=== PATIENT | female | born 1995 ===

== ENCOUNTER 2017-10-15 23:43 | Emergency (ER) | payer OTHER ==
[~2017-10-15] VITALS: Ht 165.1 cm; Wt 64.5 kg
[2017-10-15 23:46] VITALS: TEMP 36.5; Ht 165.1 cm; Wt 64.5 kg
[2017-10-16] MEDS ORDERED: TRAMADOL/ACETAMINOPHEN 37.5/325MG TAB PO ONE
--- NOTE | 2017-10-16 01:13 | EMERGENCY ROOM VISIT NOTE ---
History Report prepared by Javier: Megan Merritt Under the Supervision of: Dr. Valdemar Lambert D.O. First contact with patient: 23:51 Chief Complaint: RIB PAIN Stated Complaint: SHOOTING PAIN IN RIB CAGE,CANNOT BREATHE History of Present Illness The patient is a 22 year old female who presents to the Emergency Room with complaints of worsening right sided rib pain starting five days ago. The patient states that she originally thought it was from straining a muscle from coughing. She reports that she has done so in the past. She states that a half hour ago it got really bad. She states that it is worse when she breathes, talks , and moves. She reports that lying down makes it feel better. The patient denies any fevers and recent large amounts of alcohol. Source of History: patient Onset: five hours ago Position: other (right sided rib pain) Quality: other (similar to a strained muscle) Timing: worsening Modifying Factors (Worsening): breathing, movement, other (talking) Modifying Factors (Relieving): other (lying down) Associated Symptoms: No fevers Review of Systems See HPI for pertinent positives & negatives. A total of 10 systems reviewed and were otherwise negative. Past Medical & Surgical Medical Problems: (1) No Known Active Medical Problems Family History Patient reports no known family medical history. Social History Smoking Status: Former Smoker Alcohol Use: occasionally Marital Status: single Housing Status: lives with roommate Occupation Status: [employer] Current/Historical Medications No Active Prescriptions or Reported Meds Allergies Coded Allergies: Acetaminophen (Verified Allergy, Intermediate, GI SYMPTOMS, 10/16/17) Physical Exam Vital Signs Date Time Temp Pulse Resp B/P (MAP) Pulse Ox O2 Delivery O2 Flow Rate FiO2 10/15/17 23:46 36.5 80 16 113/78 99 Room Air Physical Exam CONSTITUTIONAL/VITAL SIGNS: Reviewed / noted above. GENERAL: Non-toxic in appearance. INTEGUMENTARY: Warm, dry, and [place]. HEAD: Normocephalic. EYES: without scleral icterus or trauma. ENT/OROPHARYNX: clear and moist. LYMPHADENOPATHY/NECK: Is supple without lymphadenopathy or meningismus. RESPIRATORY: Lungs clear and equal. CARDIOVASCULAR: Regular rate and rhythm. GI/ABDOMEN: Soft. Moderate tenderness to light palpation of the right upper abdomen. No organomegaly or pulsatile mass. No rebound or guarding. Normal bowel sounds. EXTREMITIES: Warm and well perfused. BACK: No CVA tenderness. NEUROLOGICAL: Intact without focal deficits. PSYCHIATRIC: normal affect. MUSCULOSKELETAL: Normally developed with good muscle tone. Medical Decision & Procedures ER Provider Diagnostic Interpretation: CHEST X-RAY: The results were interpreted by me. Negative for acute disease. No pneumonia. No pneumothorax. Medications Administered Medications (Trade) Dose Ordered Sig/Deion Route Start Time Stop Time Status Last Admin Dose Admin Tramadol/ Acetaminophen (Ultracet Tab) 1 tab ONE ONCE PO 10/16/17 00:00 10/16/17 00:01 DC 10/16/17 00:13 1 TAB ED Course 2353: Previous medical records were reviewed. The patient was evaluated in room C8. A complete history and physical examination was performed. 0000: Ordered Tramadol/ Acetaminophen 1 tab PO. 0113: On reevaluation, the patient is resting comfortably. I discussed the results and findings with the patient. She verbalized agreement of the treatment plan. The patient was discharged home. Medical Decision the differential was considered includes acute myocardial infarction, acute coronary syndrome, myocarditis, pericarditis, pericardial effusions /tamponade, esophageal perforation, thoracic aortic dissection, pulmonary embolism, pneumonia, pneumothorax, pancreatitis, shingles, acute cholecystitis, perforated abdominal viscus. This is a 22-year-old female who presents to the ED with a chief complaint of right upper abdominal discomfort. The patient states that she has had a recent cough. She states that her pain started with her coughing this weekend. She states that her pain seemed to be a little worse tonight. She came in for evaluation. The patient's exam reveals tenderness over the right upper abdomen. This is very superficial in nature and is augmented when the patient flexes her abdominal muscles as if doing a sit up. The patient feels that the symptoms are muscular. A chest x-ray was done and did not show any acute abnormalities. The patient was given a Percocet for her pain. She was told the results and felt to be stable for discharge. I suspect this is a muscular strain from coughing. Gallbladder abnormality is not felt to be likely. She does not have any nausea or vomiting and this is not food related. Medication Reconcilliation Current Medication List: was personally reviewed by me Blood Pressure Screening Patient's blood pressure: Normal blood pressure Blood pressure disposition: Did not require urgent referral Impression Primary Impression: Abdominal muscle pain Scribe Attestation The scribe's documentation has been prepared under my direction and personally reviewed by me in its entirety. I confirm that the note above accurately reflects all work, treatment, procedures, and medical decision making performed by me. Departure Information Dispostion Home / Self-Care Prescriptions No Active Prescriptions or Reported Meds Referrals No Doctor, Assigned (PCP) Forms HOME CARE DOCUMENTATION FORM, IMPORTANT VISIT INFORMATION, WORK / SCHOOL INSTRUCTIONS Patient Instructions [facility] Additional Instructions Take Tylenol or Motrin for pain. Follow-up with your doctor for further care and evaluation in 1-2 days. Return to the emergency department for worsening or new symptoms or any concerns. You have been examined and treated today on an emergency basis only. This is not a substitute for, or an effort to provide, complete comprehensive medical care. It is impossible to recognize and treat all injuries or illnesses in a single emergency department visit. It is therefore important that you follow up closely with your doctor. Call as soon as possible for an appointment.
[2017-10-16 01:21] VITALS: BP 114/74; PULSE 74; O2SAT 99
--- NOTE | 2017-10-16 07:31 | DIAGNOSTIC IMAGING REPORT ---
CHEST ONE VIEW PORTABLE HISTORY: Atypical chest pain. COMPARISON: None. FINDINGS: The lungs are clear. Cardiac silhouette is normal in size. No pleural effusions. No pneumothorax. IMPRESSION: No acute process. Electronically signed by: Sravan Butler M.D. 10/16/2017 7:29 AM Dictated Date/Time: 10/16/2017 7:29 AM
== END 2017-10-16 01:23 | disposition home or self-care (01) ==
LOC: C.EDB 23:46 → C.EDC 10-16 01:23
DX: R10.11 Right upper quadrant pain (principal); R07.89 Other chest pain; Z87.891 Personal history of nicotine dependence